=== PATIENT | female | born 1970 | race Two or more races ===

== ENCOUNTER → 2024-07-08 | Outpatient (CLI) | payer MEDICAID, SELFPAY ==
--- NOTE | 2024-07-08 15:57 | XR_ITS ---
Examination: Hand, left 3 views Technique: Hand AP, oblique, lateral 3 views Date and time of exam: July 08, 2024 1652 hrs. Indications: Injury to the hand yesterday with hand pain. Findings: Moderate osteopenia Partial resection trapezium No acute fracture Impression: No acute fracture
--- NOTE | 2024-07-08 15:57 | XR_ITS ---
Examination: Wrist, left 3 views Technique: Wrist AP, oblique, lateral 3 views Date and time of exam: July 08, 2024 1652 hrs. Indications: Left wrist surgery, trauma yesterday Impression: Minimal residual trapezium No acute fracture No foreign body Impression: No acute fracture
== END | disposition home or self-care (01) ==
PROVIDERS: PCP Internal Medicine
DX: S69.92XA Unspecified injury of left wrist, hand and finger(s), initial encounter (principal); X58.XXXA Exposure to other specified factors, initial encounter
CPT/HCPCS: 73110; 73130

== ENCOUNTER 2024-07-28 08:30 | Outpatient (RCR) | payer MEDICAID, SELFPAY ==
--- NOTE | 2024-07-04 13:18 | PT.OIERPT ---
PT OP Initial Eval Patient Information Outpatient Physical Therapy Treatment Date: 07/04/24 Visit Reasons: Left hand pain Medical Diagnosis: Left Hand Pain; M18.12 Treatment Dx #1: Left Hand Pain Treatment Dx #2: Left Hand Weakness Start of Care: 07/04/24 Date of Onset: 09/17/23 Smoking Status Smoking Status: Never smoker Initial Assessment Subjective: Pt is a 53 y/o female s/p left CMC replacement 09/17/23. Pt still has pain (5/10) with weakness. Pt has limitation with gripping, lifting, chores, self care, overhead motions, and performing recreational activities. Objective: Left 1st Digit AROM: all motions are WNL Left Wrist AROM: all motions are WNL Wrist MMTs: grossly 3+/5 Medical Services Manager Strength L: 45 lbs R: 58 lbs Assessment: Pt demonstrate left hand weakness and thumb pain leading to difficulty with ADLs. Pt will benefit from physical therapy to work on strength, stability, and hand dexterity. Short Term and System Archive Analyst Goals 1) Increase left livestock trucker MMTs grossly 53 lbs in 6 wks to be able to perform gripping activities 2) Decrease hand pain to 2/10 in 6 wks to be able to perform chores 3) Increase left wrist MMTs grossly to 4/5 in 6 wks to be able to perform recreational activities 4) Indep with HEP Treatment Plan 1) Manual Therapy 2) Therapeutic Activities 3) Therapeutic Exercises 4) Modalities (ice, heat) Frequency and Duration: 2 x wk for 6 wks Certification Dates: 07/04/24 to 10/01/24 Procedure Charges OP PT Eval Mod Complex 30 minutes: Yes
--- NOTE | 2024-07-19 12:57 | PTNOTE_ITS ---
PT Outpatient Daily Note OP Daily Note Outpatient Physical Therapy Treatment Date: 07/19/24 Visit Reasons: Left hand pain Subjective: Pt's hand is still hurt. Pt received a cortisone shot ~ 1 month ago and it helped with the pain. Pt recently had xray done; senior technical business analyst mentioned there may be bone floating in the hand. Pt requested to see Dr Khoury in 2 weeks. Objective: Please see flow chart for list of ther ex performed Assessment: poor tolerance to exercises due to pain. Pt decline ice to help with soreness and pain Plan: Continue with PT Length of Time (minutes) of Treatment: 30 Minutes Procedure Charges Therapeutic Exercise 30 minutes: Yes
--- NOTE | 2024-07-21 09:02 | PT.ODAYNRPT ---
PT Outpatient Daily Note OP Daily Note Outpatient Physical Therapy Treatment Date: 07/21/24 Visit Reasons: Left hand pain Subjective: Pt reports she continues to have pain along L thumb. Objective: Please see flow sheet for ther ex list. Assessment: Added functional strengthening completed with minimal discomfort. Plan: Continue with POC. Length of Time (minutes) of Treatment: 30 Minutes Procedure Charges Therapeutic Exercise 30 minutes: Yes
--- NOTE | 2024-07-26 08:37 | PT.ODAYNRPT ---
PT Outpatient Daily Note OP Daily Note Outpatient Physical Therapy Treatment Date: 07/26/24 Visit Reasons: Left hand pain Subjective: Pt's hand is stiff and notice pain in her thumb Objective: Please see flow chart for list of ther ex performed Assessment: pre heat helped with hand pain. Pt tolerate yellow resistance hand exercises Plan: Continue with PT Length of Time (minutes) of Treatment: 30 Minutes Procedure Charges Therapeutic Exercise 30 minutes: Yes
--- NOTE | 2024-07-28 09:00 | PT.ODAYNRPT ---
PT Outpatient Daily Note OP Daily Note Outpatient Physical Therapy Treatment Date: 07/28/24 Visit Reasons: Left hand pain Subjective: Pt reports L thumb is doing ok, slow progress with symptoms. Objective: Please see flow sheet for ther ex list. Assessment: Progress with interventions slow due to pt pain response. Plan: Continue with POC. Length of Time (minutes) of Treatment: 30 Minutes Procedure Charges Therapeutic Exercise 30 minutes: Yes
== END 2024-07-29 23:59 | disposition home or self-care (01) ==
LOC: CPTX 08:30
PROVIDERS: PCP Internal Medicine; Referring Provider Surgery; Visit Provider Surgery
DX: M79.642 Pain in left hand (principal); R53.1 Weakness; M18.12 Unilateral primary osteoarthritis of first carpometacarpal joint, left hand; Z96.692 Finger-joint replacement of left hand
CPT/HCPCS: 97110; 97162

== ENCOUNTER 2024-08-22 13:30 | Outpatient (RCR) | payer MEDICAID, SELFPAY ==
--- NOTE | 2024-08-04 09:35 | PT.ODAYNRPT ---
PT Outpatient Daily Note OP Daily Note Outpatient Physical Therapy Treatment Date: 08/04/24 Visit Reasons: Left hand pain Subjective: Pt's hand is about the same. Pt continues to have pain. Objective: Please see flow chart for list of ther ex performed Assessment: tolerate exercises with minimal pain; pre heat helped patient with pain. Plan: Continue with PT Length of Time (minutes) of Treatment: 30 Minutes Procedure Charges Therapeutic Exercise 30 minutes: Yes
--- NOTE | 2024-08-09 08:57 | PT.ODAYNRPT ---
PT Outpatient Daily Note OP Daily Note Outpatient Physical Therapy Treatment Date: 08/09/24 Visit Reasons: Left hand pain Subjective: Pt's tired. Pt recently came back from [place]. Pt's hand is doing okay. Objective: Please see flow chart for list of ther ex performed Assessment: tolerate red resistance hand exercises. post heat helped with pain management Plan: Continue with PT Length of Time (minutes) of Treatment: 30 Minutes Procedure Charges Therapeutic Exercise 30 minutes: Yes
--- NOTE | 2024-08-11 09:21 | PT.ODAYNRPT ---
PT Outpatient Daily Note OP Daily Note Outpatient Physical Therapy Treatment Date: 08/11/24 Visit Reasons: Left hand pain Subjective: Pt reports L hand is hurting today feels its due to the cold weather. Objective: Please see flow sheet for ther ex list. Assessment: Pt tolerated interventions with minimal pain. Plan: Continue with POC. Length of Time (minutes) of Treatment: 30 Minutes Procedure Charges Therapeutic Exercise 30 minutes: Yes
--- NOTE | 2024-08-16 08:59 | PT.ODAYNRPT ---
PT Outpatient Daily Note OP Daily Note Outpatient Physical Therapy Treatment Date: 08/16/24 Visit Reasons: Left hand pain Subjective: Pt c/o 6/10 pain today, thumb pain is worse today. As per pt she has not done anything different, pt has been crocheting at home but its part of her usual activities. Objective: Please see flow sheet for ther ex list. Assessment: Regressed interventions to accommodate reported pain. Plan: Assess response to treatment. Length of Time (minutes) of Treatment: 30 Minutes Procedure Charges Therapeutic Exercise 30 minutes: Yes
--- NOTE | 2024-08-18 09:18 | PT.ODAYNRPT ---
PT Outpatient Daily Note OP Daily Note Outpatient Physical Therapy Treatment Date: 08/18/24 Visit Reasons: Left hand pain Subjective: Pt recently seen surgeon and mentioned she does not have a floating bone at the surgical site. Surgeon mentioned she has arthritis which is also why she continues to experience pain. The thumb and hand is more pain lately. Objective: Please see flow chart for list of ther ex performed Assessment: poor tolerance to hand exercises today due to pain. preheat helped with pain, however, reports of similar pain at the end of PT session. Pt encouraged to consult with surgeon for further pain management outlet. Pt gave verbal understanding Plan: Continue with PT Length of Time (minutes) of Treatment: 30 Minutes Procedure Charges Therapeutic Exercise 30 minutes: Yes
--- NOTE | 2024-08-22 14:04 | PT.ODAYNRPT ---
PT Outpatient Daily Note OP Daily Note Outpatient Physical Therapy Treatment Date: 08/22/24 Visit Reasons: Left hand pain Subjective: Pt's hand is okay, however, she went to reach for something and heard a pop in the right shoulder. Since the pop Pt has not been able to move the shoulder as much. Objective: Please see flow chart for list of ther ex performed Assessment: Advised patient to follow up with PCP for her right shoulder pain. Today patient has poor tolerance to hand exercises due to pain and unmotivated to move due to right shoulder pain. Plan: Continue with PT Length of Time (minutes) of Treatment: 30 Minutes Procedure Charges Therapeutic Exercise 30 minutes: Yes
--- NOTE | 2024-09-13 10:27 | PT.ODS1RPT ---
PT OP Progress/Discharge Note Date of Service: 09/13/24 Progress Note/DC Note Progress Note/Discharge Note: DC Note Patient Information Visit Reasons: Left hand pain Service Discharge Date: 09/13/24 Status Assessment: Pt has been seen for 11 visits (eval + 10 visits inconsistently. Pt last treated on 08/22/24. Pt has 2 no showed appts (08/02 and 09/02). At this time Pt will be d/c from care due to non-compliance per attendance policy. Pt did not meet set goals in therapy; thank you for your referrals
== END 2024-08-29 23:59 | disposition home or self-care (01) ==
LOC: CPTX 13:30
PROVIDERS: PCP Surgery; Referring Provider Surgery; Visit Provider Surgery
DX: M79.642 Pain in left hand (principal); R53.1 Weakness; Z98.890 Other specified postprocedural states
CPT/HCPCS: 97110

== ENCOUNTER → 2024-08-29 | Outpatient (CLI) | payer MEDICAID, SELFPAY ==
--- NOTE | 2024-08-29 11:30 | XR_ITS ---
Examination: Lumbar spine 3 views Technique one AP lateral coned lateral lower lumbar spine 3 views Exam date and time: August 29, 2024 1249 hours INDICATIONS: Chronic low back pain history low back surgery more pronounced lower back pain the last week. FINDINGS: Transpedicular lumbar fusion L5-S1 Satisfactory alignment No lumbar fracture Mild lumbar spondylosis Moderate degenerative disc disease T11-T12 IMPRESSION: Transpedicular lumbar fusion L5-S1 with anatomic alignment Moderate degenerative disc disease T11-T12
--- NOTE | 2024-08-29 11:30 | XR_ITS ---
Examination: Shoulder,right, 3 views Technique: Shoulder AP internal rotation, AP external rotation, Y view shoulder, 3 views Exam date and time :August 29, 2024 at 1239 hours INDICATIONS: Right shoulder pain beginning one week ago. FINDINGS: Mild narrowing glenohumeral joint No shoulder fracture or dislocation No AC joint separation IMPRESSION: Mild narrowing glenohumeral joint
== END | disposition home or self-care (01) ==
LOC: CDIM 11:19
PROVIDERS: PCP Nurse Practitioner Family; Referring Provider Nurse Practitioner Family; Visit Provider Nurse Practitioner Family
DX: M25.811 Other specified joint disorders, right shoulder (principal); M51.35 Other intervertebral disc degeneration, thoracolumbar region; M43.27 Fusion of spine, lumbosacral region
CPT/HCPCS: 72100; 73030

== ENCOUNTER 2025-03-30 10:30 | Outpatient (RCR) | payer MEDICAID, SELFPAY ==
--- NOTE | 2025-03-15 12:45 | PTNOTE_ITS ---
PT OP Initial Eval Patient Information Outpatient Physical Therapy Treatment Date: 03/15/25 Visit Reasons: Cervical Radiculopathy Medical Diagnosis: M54.12 Treatment Dx #1: Neck Pain Treatment Dx #2: Right UE Pain Start of Care: 03/15/25 Date of Onset: 1 year ago Smoking Status Smoking Status: Never smoker Initial Assessment Subjective: Pt is a 54 y/o female reports of neck pain and right UE weakness with numbness ~ 1 year ago. Pt's most recent CT scan showed mild DDD of the C5-C6 and C6-C7. Pt has limitation with overhead motions, chores, self care, cooking, cleaning, driving, and performing recreational activities. Objective: C/S AROM: all motions are WFL with end range pain into extension Right Shoulder AROM: all motions are WFL Right Shoulder MMTs: grossly 4-/5 Right Scapula MMTs: grossly 3+/5 Special Test (+) spurling Assessment: Pt demonstrate neck pain with right UE weakness leading to difficulty with ADLs. Pt will attempt physical therapy if pain persist Pt will be refer back to provider for further consiltation. Short Term and Skilled Nursing Goals 1) Increase c/s AROM WNL in [address] be able to drive 2) Increase right shoulder AROM WNL in 6 wks to be able to perform overhead motions 3) Increase right shoulder MMTs grossly to 4/5 in 6 wks to be able to perform recreational activities 4) Decrease neck pain to 2/10 in 6 wks to be able to perform chores 5) Indep with HEP Treatment Plan 1) Manual Therapy 2) Therapeutic Activities 3) Therapeutic Exercises 4) Modalities (ice, heat, traction) Frequency and Duration: 2 x wk for 6 wks Certification Dates: 03/15/25 to 06/15/25 Procedure Charges OP PT Eval Mod Complex 30 minutes: Yes
--- NOTE | 2025-03-23 11:37 | PT.ODAYNRPT ---
PT Outpatient Daily Note OP Daily Note Outpatient Physical Therapy Treatment Date: 03/23/25 Visit Reasons: Cervical Radiculopathy Subjective: Pt's neck and arms are killing her today. Pt has moved into her new apartment has been packing/unpacking. Objective: Please see flow chart for list of ther ex performed Assessment: minimal change in pain post PT session. Pt demonstrate improve upper trape and levator length post stretching Plan: Continue with PT Length of Time (minutes) of Treatment: 30 Minutes Procedure Charges Therapeutic Exercise 30 minutes: Yes
--- NOTE | 2025-03-28 10:50 | PT.ODAYNRPT ---
PT Outpatient Daily Note OP Daily Note Outpatient Physical Therapy Treatment Date: 03/28/25 Visit Reasons: Cervical Radiculopathy Subjective: Pt's back is sore and ache from moving. Pt is unable to lay on her back for mechanical traction today. Pt has seen the acupuncture twice which did not help the pain. Objective: Please see flow chart for list of ther ex performed Assessment: unable to attempt c/s traction today due to inability lay on her back. Pt tolerate all other exerises with minimal pain reported Plan: Continue with PT Length of Time (minutes) of Treatment: 30 Minutes Procedure Charges Therapeutic Exercise 30 minutes: Yes
--- NOTE | 2025-03-30 11:38 | PT.ODAYNRPT ---
PT Outpatient Daily Note OP Daily Note Outpatient Physical Therapy Treatment Date: 03/30/25 Visit Reasons: Cervical Radiculopathy Subjective: Pt reports neck is doing a little better today compared to previous time she was here in PT. Objective: Please see flow sheet for ther ex list. Assessment: Pt presents in clinic with decrease pain, able to lay in supine for cervical mechanical traction completed with no complaints. Plan: Continue with poC. Length of Time (minutes) of Treatment: 30 Minutes Procedure Charges Therapeutic Exercise 30 minutes: Yes
== END 2025-03-31 23:59 | disposition home or self-care (01) ==
LOC: CPTX 10:30
PROVIDERS: PCP Psychiatry & Neurology Neurology; Referring Provider Psychiatry & Neurology Neurology; Visit Provider Psychiatry & Neurology Neurology
DX: M54.12 Radiculopathy, cervical region (principal)
CPT/HCPCS: 97110; 97162

== ENCOUNTER → 2025-04-14 | Outpatient (CLI) | payer MEDICAID, SELFPAY ==
--- NOTE | 2025-04-14 08:46 | XR_ITS ---
Examination: Bilateral hands, 6 views. Technique: AP, Oblique, Lateral each hand total 6 views Date and time of exam: April 14, 2025, 0904 hours INDICATIONS: Bilateral hand pain after falling 1 year ago. 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
--- NOTE | 2025-04-14 08:46 | XR_ITS ---
EXAMINATION: Bilateral wrist 6 views TECHNIQUE: AP oblique lateral each wrist total 6 views Date and time: April 14, 2025, 0913 hours INDICATIONS: Patient fell last year with injury to both wrist, bilateral wrist pain. 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
== END | disposition home or self-care (01) ==
PROVIDERS: Referring Provider Nurse Practitioner Gerontology; Visit Provider Nurse Practitioner Gerontology
DX: M19.042 Primary osteoarthritis, left hand (principal); M19.041 Primary osteoarthritis, right hand; M18.0 Bilateral primary osteoarthritis of first carpometacarpal joints; M19.032 Primary osteoarthritis, left wrist; M19.031 Primary osteoarthritis, right wrist
CPT/HCPCS: 73110; 73130

== ENCOUNTER 2025-04-24 11:30 | Outpatient (RCR) | payer MEDICAID, SELFPAY ==
--- NOTE | 2025-04-06 12:58 | PT.ODAYNRPT ---
PT Outpatient Daily Note OP Daily Note Outpatient Physical Therapy Treatment Date: 04/06/25 Visit Reasons: Neck pain Subjective: Pt reports neck is really painful and stiff, has been having a hard time these last two days. Pt almost in tears, c/o pain. Objective: Please see flow sheet for ther ex list. Assessment: Modified interventions to accommodate reported pain. Performed light PROM to c/s and STM with occipital release. Plan: Continue with poC. Length of Time (minutes) of Treatment: 30 Minutes Procedure Charges Therapeutic Exercise 30 minutes: Yes
--- NOTE | 2025-04-12 15:53 | PT.ODAYNRPT ---
PT Outpatient Daily Note OP Daily Note Outpatient Physical Therapy Treatment Date: 04/12/25 Visit Reasons: Neck pain Subjective: Pt's neck felt a little better. Pt still has difficulty turning her head with driving. Pt will see neurologist on thursday and will decide if she wants to continue PT. Objective: Please see flow chart for list of ther ex performed Assessment: slight improve with c/s rotation bilateral direction post PT session. Plan: Continue with PT Length of Time (minutes) of Treatment: 30 Minutes Procedure Charges Therapeutic Exercise 30 minutes: Yes
--- NOTE | 2025-04-17 13:34 | PT.ODAYNRPT ---
PT Outpatient Daily Note OP Daily Note Outpatient Physical Therapy Treatment Date: 04/17/25 Visit Reasons: Neck pain Subjective: Pt reports neck continues to be stiff and painful, c/o 5/10 pain. Pt mentioned that she has a follow up with doctor Hans this Thursday. Objective: Please see flow sheet for ther ex list. Assessment: Slow progress with interventions in clinic due to pain response. Plan: Continue with pOC. Length of Time (minutes) of Treatment: 30 Minutes Procedure Charges Therapeutic Exercise 30 minutes: Yes
--- NOTE | 2025-04-24 11:42 | PT.ODAYNRPT ---
PT Outpatient Daily Note OP Daily Note Outpatient Physical Therapy Treatment Date: 04/24/25 Visit Reasons: Neck pain Subjective: Pt's neck and arm pain is about the same. Pt does not know the results of the nerve conduction test due to no follow up appt with neurologist yet. Objective: Please see flow chart for list of ther ex performed Assessment: no change in overall symptoms post PT session. Pt continues to exhibit upper trape and levator scapulae tightness R>L during stretches Plan: Continue with PT Length of Time (minutes) of Treatment: 30 Minutes Procedure Charges Therapeutic Exercise 30 minutes: Yes
== END 2025-04-30 23:59 | disposition home or self-care (01) ==
LOC: CPTX 11:30
PROVIDERS: PCP Psychiatry & Neurology Neurology; Referring Provider Psychiatry & Neurology Neurology; Visit Provider Psychiatry & Neurology Neurology
DX: M50.122 Cervical disc disorder at C5-C6 level with radiculopathy (principal)
CPT/HCPCS: 97110

== ENCOUNTER 2025-05-09 12:53 | Outpatient (RCR) | payer MEDICAID, SELFPAY ==
--- NOTE | 2025-05-09 13:55 | PT.ODAYNRPT ---
PT Outpatient Daily Note OP Daily Note Outpatient Physical Therapy Treatment Date: 05/09/25 Visit Reasons: NECK PAIN Subjective: Pt reports neck is doing a little better today but still has difficulty with rotating head. Objective: Please see flow sheet for ther ex list. Assessment: Progressing interventions as tolerated. Plan: Continue with POC. Length of Time (minutes) of Treatment: 30 Minutes Procedure Charges Therapeutic Exercise 30 minutes: Yes
== END 2025-05-31 23:59 | disposition home or self-care (01) ==
LOC: CPTX 12:53
PROVIDERS: PCP Psychiatry & Neurology Neurology; Referring Provider Psychiatry & Neurology Neurology; Visit Provider Psychiatry & Neurology Neurology
DX: M54.12 Radiculopathy, cervical region (principal); M50.322 Other cervical disc degeneration at C5-C6 level
CPT/HCPCS: 97110